=== PATIENT | male | born 1985 | race Caucasian/White ===

== ENCOUNTER 2017-08-20 08:03 | Inpatient (IN) ==
--- NOTE | 2017-08-20 08:23 | Anesthesia Evaluation PreOp ---
Date of Encounter: 08/20/17 Time of Encounter: 08:25 - Past History Planned Operation: Posterior Lumbar Interbody Fusion L5-S1 Cardiac History: Denies any Significant Hx Pulmonary History: Smoker (Chews tobacco. Denies smoking tobacco.) RD MANAGER History: Other (Neck pain. Bilateral knee pain. Lumbar stenosis. Spondylolisthesis.) Other Medical History: Other (BMI of 45.73. Morbid Obesity. Irritable Bowel Syndrome. Abdominal Pain.) Anesthesia History: No Prior Anesthetic Complications Alcohol Use: rarely Drug use: none Medications and Allergies Buspirone HCl [Buspar] 15 mg PO TID 08/20/17 [History] Dicyclomine [Bentyl] 20 mg PO QID 08/20/17 [History] Escitalopram [Lexapro] 20 mg PO DAILY 08/20/17 [History] Gabapentin [Neurontin] 800 mg PO TID 08/20/17 [History] Methocarbamol [Robaxin] 750 mg PO TID PRN 08/20/17 [History] 3 Allergy/AdvReac Type Severity Reaction Status Date / Time Amoxicillin [From Augmentin] Allergy See Verified 08/20/17 08:30 Comments clavulanic acid Allergy See Verified 08/20/17 08:30 [From Augmentin] Comments Penicillins [PCN] Allergy See Verified 08/20/17 08:30 Comments - Meds/Allergy Pre-op Review Medications Reviewed: Yes Allergies Reviewed: Yes Beta Blockers on Current Med List: No Anesthesia Results - Labs WBC 10.8 Hb 14.6 Hct 43.9 Plt 284 PT 11.1 INR 1.0 PTT 29.0 Na 141 K 4.5 Chlr 106 CO2 26 BUN 15 Creat 1.22 Anesthesia Exam Height: 64 inches Weight: 234.2 //BMI 45.73 NPO (# of Hours): 8 hours - HEENT Pupil (Motor): Pupils equal Mallampati: III Teeth: Normal Denture Type: Upper: Complete Oral Opening: Less than or equal to 3 - RD MANAGER LOC: Oriented - Cardiac Murmur: None JVD: No Carotid Bruit: No - Pulmonary Breath Sounds: bilateral Clear Anesthesia Assess/Plan ASA Score: 2 Modified [place] Scale for Level of Consciousness: Cooperative, oriented, and tranquil Anesthetic Plan: General Autologous Blood: No Monitoring Plan: Standard Monitors Recovery Plan: PACU
[2017-08-20] MEDS ORDERED: *HR* HYDROmorphone (PF) 1 MG/ML SYRINGE IVP PRN (08:32)
[2017-08-20] MEDS ORDERED: *HR* Labetalol 20 MG/4 ML SYRINGE IVP PRN (08:32)
[2017-08-20] MEDS ORDERED: *HR* Promethazine 25 MG/ML VIAL IVP PRN (08:32)
[2017-08-20] MEDS ORDERED: Ondansetron 4 MG/2 ML VIAL ONE (08:35)
[2017-08-20] MEDS ORDERED: Lidocaine -MPF 4% 5 ML AMPUL ONE (08:35)
[2017-08-20] MEDS ORDERED: Dexamethasone 4 MG/ML VIAL ONE (08:35)
[2017-08-20] MEDS ORDERED: *HR* Midazolam HCl 2 MG/2 ML VIAL ONE (08:35)
[2017-08-20] MEDS ORDERED: *HR* Propofol 200 MG/20 ML VIAL IVP ONE (08:35)
[2017-08-20] MEDS ORDERED: *HR* Rocuronium Bromide 50 MG/5 ML VIAL ONE (08:35)
[2017-08-20] MEDS ORDERED: *HR* Succinylcholine 200 MG/10 ML VIAL IVP ONE (08:35)
[2017-08-20] MEDS ORDERED: Lidocaine -MPF 2% 2 ML VIAL ONE (08:36)
[2017-08-20] MEDS ORDERED: Clindamycin 900 MG/50 ML 900 MG/50 ML IV.SOLN IVPB ONE (08:53)
[2017-08-20] MEDS: Ringers Solution, Lactated 1,000 ML IVC SCH ×3 (09:00→16:20)
--- NOTE | 2017-08-20 09:44 | History & Physical Report ---
Date of Encounter: 08/20/17 Time of Encounter: 09:44 24 Hour HP Update - Instructions Instructions: If the History and Physical is less than 30 days old and was completed prior to A.M. admission and or procedure and has NOT been updated on calendar day of procedure please complete this update prior to performing procedure. - Update Patient reports changes in Medical Condition: No Changes in examination, assessment, or condition: No Changes in Medication: No Preop tests/diagnostics Reviewed: Yes Pre-Op MRSA Screen: Negative Surgery Remains Indicated: Yes Consent for Planned Operative Procedure(s) Verified: Yes - Pre-Operative Checklist Preoperative Checklist Indicated: No Prophylactic Antibiotic Ordered: Yes Home Medications Include Beta Chemo: No Beta Chemo Taken Today (Day of Surgery): No Beta Chemo Taken Yesterday (Day Prior to Surgery): No Is VTE Prophylaxis Indicated?: Yes
[2017-08-20] MEDS ORDERED: *HR* FentaNYL (PF) 100 MCG/2 ML VIAL ONE (10:01)
[2017-08-20] MEDS ORDERED: EPHEDrine 50 MG/ML VIAL ONE (10:48)
[2017-08-20] MEDS ORDERED: Neostigmine Methylsulfate 3 MG/3 ML SYRINGE ONE (11:02)
--- NOTE | 2017-08-20 13:04 | Orthopedic Operative Note ---
Date of procedure: 08/20/17 Pre-op diagnosis: Spondylolisthesis, lumbar stenosis, lumbar radiculopathy, spondylolysis Post-op diagnosis: same Operation/Findings: Posterior lumbar interbody fusion L5-S1:The patient successfully underwent general endotracheal anesthesia. The patient was given antibiotics prior to the start of the procedure. Compression boots and stockings were used for deep vein thrombosis prophylaxis. A Younger catheter was placed. Leads for neuro monitoring were placed on the upper and lower extremities. This included the cranium. The neuro monitoring personnel confirmed there were satisfactory readings prior to the start of the procedure. The patient was turned prone on the Farshad table. The back was prepped and draped in the usual sterile fashion. An incision was was marked and centered over the involved L5 and S1 levels in the mid line. The incision was deepened through the lumbar fascia. Bovie cautery and Benites elevators were used to reflect the paraspinal musculature at the lateral extent of the transverse processes of the involved L5 and S1 levels. Berta clamps were placed over the L5 spinous process. An intraoperative lateral fluoroscopy graft was obtained. A conversation was held between the surgeon and radiologist and both confirmed we had the correct operative levels. We then placed pedicle screws in standard fashion with the aid of fluoroscopy and anatomic landmarks. Briefly a starter awl was used. A gearshift was subsequently used to enter the corporation pilot hole via a transpedicular route into the vertebral body. The corporation pilot hole was tapped with an undersized instrument, and subsequently four 6.5 x 40 mm pedicle screws were placed bilaterally at the indicated L5 and S1 levels. The screws were tested with the aid of the neurologic monitoring staff via pedicle screw stimulation. All reading suggested there was no significant cortical wall breech. The screws were also evaluated fluoro- graphically and appeared to be in satisfactory position. We then turned our attention to the decompression portion of the procedure. We removed the supraspinous and interspinous ligaments and subsequently the insertion of the ligamentum flavum on the undersurface of the proximal L5 lamina was dislodged with a curette. We then removed the ligamentum flavum as well as undercut the L5-S1 facets at this level to decompress the lateral recesses. We also performed a L5 Funk laminectomy. After the decompression which was over and above that which was required to place the interbody graft, the foramen and traversing roots at this level were found to be free and patent. We then protected the neural elements including the thecal sac and traversing nerve root on the right with a dural retractor. We made an annulotomy into the L5-S1 disc space and then removed the entire disc material using Pituitary instruments. We trialed various size grafts after the endplates were prepared for graft insertion. A 10 x 26 enter body graft fit well within the L5-S1 disc space. We obtained some bone from the right posterior superior iliac spine through us a separate incision and combined with this with the bone which we had saved from the Funk L5 laminectomy portion of the procedure. This autograft bone was first placed in the anterior portion of the L5-S1 disc space and additional bone was placed within the interbody graft spacer. We then placed the interbody graft spacer obliquely across the L5-S1 disc space towards the midline while protecting the neural elements with a root retractor. When the graft was found to be in satisfactory position the coordinate measuring machine technician was removed. We then copiously irrigated the wound. We then decorticated the L5 transverse processes as well as the facet joints of the involved L5-S1 levels to aid in the posterolateral fusion. We placed autograft bone in the lateral gutters over these regions. We then placed rods within the screw heads of the involved L5 and S1 levels and first locked the distal screws and then subsequently locked the proximal screws so as to improve and reduce the spondylolisthesis previously seen. We then closed the wound in layers with 1 Vicryl for the fascia, 2-0 Vicryl. Subcutaneous tissue, and Dermabond was used for skin closure. Sterile dressings were placed over the wound. The patient was turned supine on a hospital bed and extubated. All sponge instruments and needle counts were correct at the end of the procedure. The patient tolerated the procedure well without complications. Anesthesia: GETA Surgeon: Phillip Stafford Jr Estimated blood loss (cc): 120 Condition: stable Disposition: PACU
[2017-08-20] MEDS ORDERED: *HR* Morphine 10 MG/ML VIAL ONE ×2 (13:10→13:18)
[2017-08-20] MEDS ORDERED: *HR* Meperidine 50 MG/ML SYRINGE ONE (13:30)
[2017-08-20] MEDS ORDERED: *HR* Labetalol 100 MG/20 ML MDV ONE (13:30)
[2017-08-20] MEDS ORDERED: Acetaminophen IV 1,000 MG/100 ML INFUS..BTL IVPB ONE (13:45)
[2017-08-20] MEDS: Naloxone 0.4 MG/ML INJ ONE ×3 (14:08→14:13)
[2017-08-20] MEDS ORDERED: Acetaminophen IV 1,000 MG/100 ML INFUS..BTL ONE (14:22)
--- NOTE | 2017-08-20 15:09 | Anesthesia Evaluation Post Op ---
Date of Encounter: 08/20/17 Time of Encounter: 15:07 - Vital Signs Vital Signs: Vital Signs/O2 Sat, Most Current Temp Pulse Resp BP Pulse Ox 98.7 F 97 16 133/58 97 08/20/17 14:43 08/20/17 15:03 08/20/17 15:03 08/20/17 15:03 08/20/17 15:03 - Lungs Lungs: Clear Ascult./Percussion - Airway Airway: Non-obstructed - Cardiovascular Regular Rate - Mental Status Mental Status: Alert & Oriented, Answers Appropriately - Pain Pain Scale: 10 (pt received dose of narcan in PACU for respiratory depression) Pain Scale used: Numeric (1 - 10) - Nausea Vomiting Nausea Vomiting: Not Present - Hydration Hydration: Tolerates oral liquids, Younger catheter Notes: 08/20/17 15:08 patient resting comfortably - Discharge PostOp Status: Transfer Patient to floor
[2017-08-20] MEDS ORDERED: Acetaminophen 325 MG TABLET PO PRN (15:11)
[2017-08-20] MEDS ORDERED: Naloxone 0.4 MG/ML INJ IVP PRN (15:11)
[2017-08-20] MEDS ORDERED: *HR* OxyCODONE Immed Rel 5 MG TABLET PO SCH (16:00)
[2017-08-20] MEDS ORDERED: Clindamycin 600 MG in D5% in Water 50 ML IVPB SCH (16:00)
[2017-08-20] MEDS: Clindamycin 600 MG/50 ML 600 MG/50 ML IV.SOLN IVPB SCH ×2 (16:20→23:34)
[2017-08-20] MEDS: *HR* OxyCODONE Immed Rel 5 MG TABLET PO PRN ×2 (17:18→21:42)
[2017-08-20] MEDS: *HR* Morphine 2 MG/ML SYRINGE IVP PRN ×2 (18:25→22:44)
[2017-08-21] MEDS: *HR* OxyCODONE Immed Rel 5 MG TABLET PO PRN ×5 (01:43→20:19)
[2017-08-21] MEDS: Ondansetron 4 MG/2 ML VIAL IVP PRN ×3 (02:12→17:44)
[2017-08-21] MEDS: Ringers Solution, Lactated 1,000 ML IVC SCH (02:18)
[2017-08-21] MEDS: *HR* Morphine 2 MG/ML SYRINGE IVP PRN ×3 (03:00→12:05)
[2017-08-21] MEDS: Methocarbamol 750 MG TABLET PO PRN (10:07)
[2017-08-21] MEDS: *HR* Promethazine 25 MG/ML VIAL IVP PRN ×2 (14:26→22:35)
--- NOTE | 2017-08-21 15:07 | Spine Progress Note ---
Date of Encounter: 08/21/17 Time of Encounter: 15:05 Subjective Principal diagnosis: Status post lumbar fusion, spondylolisthesis, spondylolysis Interval history: The patient complains of significant back pain. He also had nausea. Afebrile vital signs are stable. Incision is clean dry and intact. Neurovascularly intact with regard to bilateral lower extremities. Fires all upper and lower extremity motor groups. Assessment :stable. Plan mobilize ,continue analgesics, discharge planning. antiemetics, muscle relaxants, Sleep-Aid. Objective Vital signs: Vital Signs Temp Pulse Resp BP Pulse Ox 08/21/17 15:02 100.3 F H 103 18 114/68 93 08/21/17 12:04 83 18 133/72 08/21/17 10:24 98.5 F 80 20 116/67 96 08/21/17 06:29 98.3 F 89 18 123/61 94 08/21/17 03:25 97.9 F 71 18 117/64 94 08/20/17 22:56 97.8 F 81 17 126/64 96 08/20/17 19:11 97.7 F 107 17 134/67 94 08/20/17 18:30 97.8 F 100 16 114/63 97 08/20/17 17:21 98.1 F 98 16 118/65 95 08/20/17 16:42 98.1 F 84 16 114/58 98 08/20/17 16:38 98.2 F 110 16 103/66 96 08/20/17 16:00 98.2 F 110 16 103/66 96 08/20/17 15:45 98.2 F 93 15 116/55 97 08/20/17 15:36 97.6 F 90 14 114/70 96 08/20/17 15:13 98.6 F 98 16 128/62 97 Intake and Output 08/20/17 08/21/17 08/21/17 23:59 07:59 15:59 Intake Total 650 / 650 1000 / 1000 360 / 360 Output Total 2400 / 2400 2400 / 2400 200 / 200 Balance -1750 / -1750 -1400 / -1400 160 / 160 Intake: IV Fluids 50 / 50 1000 / 1000 Lactated Ringers 1,000 ML @ 100 1000 / 1000 mls/hr IVC .Q10H [facility] Rx#: [id number] Cleocin Premix 600 MG/50 ML 600 50 / 50 mg In 50 ml @ 50 mls/hr IVPB Q8HR [facility] Rx#:[id number] Oral 600 / 600 360 / 360 Output: Urine 200 / 200 Catheter 2400 / 2400 2400 / 2400 Urethral (Younger) 2400 / 2400 Other: Meal Breakfast Percent of Meal Consumed 100% Consult Discharge Plan - Plan Referrals: Brandie Miles, POLICE CHIEF [Primary Care Provider] -
[2017-08-21] MEDS ORDERED: diazePAM 5 MG TABLET PO PRN (15:38)
[2017-08-21] MEDS ORDERED: Temazepam 15 MG CAPSULE PO PRN (21:00)
[2017-08-22] MEDS: Ondansetron 4 MG/2 ML VIAL IVP PRN (05:13)
[2017-08-22] MEDS: *HR* Promethazine 25 MG/ML VIAL IVP PRN (09:05)
[2017-08-22] MEDS: D5% in 0.45% NACL w KCl 20 MEQ/1,000 ML MLS IVC SCH (17:45)
[2017-08-22] MEDS: *HR* Morphine 2 MG/ML SYRINGE IVP PRN ×2 (17:58→23:51)
[2017-08-23] MEDS: D5% in 0.45% NACL w KCl 20 MEQ/1,000 ML MLS IVC SCH ×2 (03:50→19:53)
[2017-08-23] MEDS: *HR* Morphine 2 MG/ML SYRINGE IVP PRN ×2 (07:32→13:16)
[2017-08-23] MEDS: *HR* OxyCODONE Immed Rel 5 MG TABLET PO PRN ×3 (11:11→22:34)
--- NOTE | 2017-08-23 13:30 | Spine Progress Note ---
Date of Encounter: 08/22/17 Time of Encounter: 13:30 Subjective Principal diagnosis: Status post lumbar fusion, spondylolisthesis, spondylolysis Interval history: The patient complains of significant back pain. He also had nausea. He has had bouts of emesis. Afebrile vital signs are stable. Incision is clean dry and intact. Neurovascularly intact with regard to bilateral lower extremities. Fires all upper and lower extremity motor groups. Abdomen is soft but distended . Assessment :stable. Concern for ileus. Plan mobilize ,continue analgesics, discharge planning. antiemetics, muscle relaxants, Sleep-Aid. Will obtain KUB of abdomen to check for ileus. Objective Vital signs: Vital Signs Temp Pulse Resp BP Pulse Ox 08/23/17 11:14 98.5 F 87 14 133/79 96 08/23/17 07:10 98.4 F 88 14 130/78 96 08/23/17 00:17 98.8 F 90 16 127/68 93 08/22/17 20:14 98.8 F 91 16 149/77 94 Intake and Output 08/22/17 08/23/17 08/23/17 23:59 07:59 15:59 Intake Total 0 / 0 1000 / 1000 Output Total 200 / 200 300 / 300 Balance 0 / 0 800 / 800 -300 / -300 Intake: IV Fluids 1000 / 1000 KCl 20mEq IN D5%-0.45 NACL 20 1000 / 1000 meq In 1,000 ml @ 100 mls/hr IVC .Q10H [facility] Rx#:[id number] Oral 0 / 0 0 / 0 Output: Urine 200 / 200 300 / 300 Other: Stool Size Small Stool Consistency soft Stool Color Brown # Voids 1 Consult Discharge Plan - Plan Referrals: Iris Aguilar PAC [Physician School Office Assistant] - 09/03/17 9:15 am () Phillip Stafford Jr, MD [Partnered Physician] - 11/21/17 11:30 am Brandie Miles CNP [Primary Care Provider] -
--- NOTE | 2017-08-23 13:33 | Discharge Summary ---
Date of Encounter: 08/23/17 Time of Encounter: 13:30 - Discharge Diagnosis (1) Spondylolisthesis at L5-S1 level Priority: Primary Status: Chronic (2) Foraminal stenosis of lumbar region Priority: Secondary Status: Chronic - Discharge Medications Prescriptions: OxyCODONE Immed Rel [Roxicodone 5 MG] 5 mg PO Q4HR PRN #40 tablet PRN Reason: Breakthrough Pain Home Medications: Buspirone HCl [Buspar] 15 mg PO TID 08/20/17 [History] Dicyclomine [Bentyl] 20 mg PO QID 08/20/17 [History] Escitalopram [Lexapro] 20 mg PO DAILY 08/20/17 [History] Gabapentin [Neurontin] 800 mg PO TID 08/20/17 [History] Methocarbamol [Robaxin] 750 mg PO TID PRN 08/20/17 [History] OxyCODONE Immed Rel [Roxicodone 5 MG] 5 mg PO Q4HR PRN #40 tablet 08/23/17 [Rx] Allergies/Adverse Reactions: 3 Allergy/AdvReac Type Severity Reaction Status Date / Time Amoxicillin [From Augmentin] Allergy See Verified 08/20/17 08:30 Comments clavulanic acid Allergy See Verified 08/20/17 08:30 [From Augmentin] Comments Penicillins [PCN] Allergy See Verified 08/20/17 08:30 Comments - Impressions ITS Impressions Fluoroscopy 08/20/17 12:25 IMPRESSION: 1. C-arm fluoroscopy provided for L5-S1 spinal fusion. Please refer to the procedure report for further details. D/ / Randall Abreu MD / Randall Abreu MD Interpreting Provider: Randall Abreu MD Lumbar Spine X-Ray 08/20/17 12:26 IMPRESSION: 1. C-arm fluoroscopy provided for L5-S1 spinal fusion. Please refer to the procedure report for further details. D/ / Randall Abreu MD / Randall Abreu MD Interpreting Provider: Randall Abreu MD X-Ray 08/22/17 12:57 IMPRESSION: Gaseous distention of the colon between 6-7 cm. Gas-filled, normal-caliber loops of small bowel. Overall, the findings favor postoperative ileus. D/ / 08/22/2017 14:02:00 Orlando Barclay MD / boubacar Interpreting Provider: Orlando Barclay MD Lumbar Spine X-Ray 08/23/17 08:05 IMPRESSION: Status post L5-S1 fusion. There is anatomic alignment D/ / Todd Hook MD / Todd Hook MD Interpreting Provider: Todd Hook MD Date of admission: 08/20/17 15:39 Primary care physician: Brandie Miles CNP Consults: 08/20/17 15:11 Consult to Occupational Therapy [CONS] Routine Comment: Evaluate, develop and implement POC Reason for Consult: Postoperative rehabilitation Consult to Physical Therapy [CONS] Routine Comment: Evaluate, develop and implement POC Reason for Consult: postoperative rehabilitation Consult to Spine Navigator [CONS] [CONS] Routine - Patient Status Disposition: Home, Self-Care Condition: Good Functional capacity at discharge: independent ambulation Overall status at discharge: patient is progressing back to baseline - Discharge Instructions Follow Up With: Iris Aguilar PAC [Physician Securities Broker] - 09/03/17 9:15 am () Phillip Stafford Jr, MD [Partnered Physician] - 11/21/17 11:30 am Brandie Miles CNP [Primary Care Provider] - - Diet and Activity Activity: as per physical therapy Diet: advance to your usual diet - Hospital Course Hospital course: Mr. Goodson is a 31 year old male The patient had an uneventful postoperative course. It was complicated by ileus but this subsequently resolved by making the patient nothing by mouth an outlying bowel motility to recover. Progressed from intravenous analgesic needs to oral analgesic needs only. Remained neurovascularly intact and mobilized satisfactorily. All intraoperative and/or postoperative radiographic studies were satisfactory. Patient is discharged with plan for rehabilitation and follow-up in 2 weeks post discharge on analgesic medication and patient's home medications. - Time Spent with Patient Total time spent providing and/or coordinating discharge services: - VTE Documentation of Mechanical Device: Graduated compression elastic hosiery
[2017-08-23] MEDS: Ringers Solution, Lactated 1,000 ML IVC SCH ×5 (19:49→20:35)
[2017-08-24] MEDS: *HR* OxyCODONE Immed Rel 5 MG TABLET PO PRN ×3 (02:37→12:53)
[2017-08-24] MEDS: Methocarbamol 750 MG TABLET PO PRN (03:11)
[2017-08-24] MEDS: D5% in 0.45% NACL w KCl 20 MEQ/1,000 ML MLS IVC SCH (04:43)
[2017-08-24] MEDS ORDERED: Ketorolac 30 MG/ML VIAL IVP ONE (07:17)
[2017-08-24 12:51] VITALS: BP 131/72
== END 2017-08-24 13:02 | disposition home or self-care (01) | DRG 460 ==
LOC: SAMDAY 08:03 → 3NENU 15:39
PROVIDERS: ADMIT Orthopaedic Surgery Orthopaedic Surgery of the Spine; ATTEND Orthopaedic Surgery Orthopaedic Surgery of the Spine